=== PATIENT | female | born 2000 | race Caucasian/White ===

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

== ENCOUNTER 2020-05-18 00:01 | Emergency (ER) | payer OTHER ==
[~2020-05-18] VITALS: Ht 152.4 cm; Wt 77.0 kg
[~2020-05-18 00:01] MED LIST changes: +ZITHROMAX500 MG PO
[2020-05-18 02:20] VITALS: BP 122/68
== END 2020-05-18 02:20 | disposition home or self-care (01) ==
LOC: ED 00:01
DX: L50.0 Allergic urticaria (principal); L55.0 Sunburn of first degree; J45.909 Unspecified asthma, uncomplicated

== ENCOUNTER 2023-09-04 17:32 | Emergency (ER) | payer OTHER ==
[~2023-09-04] VITALS: Ht 152.4 cm; Wt 88.0 kg
[2023-09-04 18:30] LABS: BASO% 0.6 % (0-3); EOS% 1.4 % (0-8); HEMATOCRIT 42.2 % (37.0-47.0); HEMOGLOBIN 13.8 g/dl (12.0-16.0); IMMATURE GRANULOCYTES 0.2 % (0.0-5.0); LYMPH% 41.8 % (15-41); MEAN CORPUSCULAR HGB 28.5 pG CALC (26.0-32.0); MEAN CORPUSCULAR HGB CONC 32.7 g/dL CAL (32.0-36.0); MONO% 6.4 % (2-13); NEUT# 4.76 thou/uL (2.00-7.15); NEUT% 49.6 % (42-76); RED BLOOD COUNT 4.85 mill/uL (4.20-5.60); RED CELL DISTRI WIDTH 12.4 % (11.5-15.5)
[2023-09-04 18:30] LABS: URINE BILIRUBIN - DIPSTICK Negative (NEGATIVE); URINE BLOOD DIPSTICK Negative (NEGATIVE); URINE COLOR Yellow; URINE GLUCOSE - DIPSTICK Negative (NEGATIVE); URINE KETONE Negative (NEGATIVE); URINE LEUK ESTERASE Negative (NEGATIVE); URINE NITRITE - DIPSTICK Negative (Negative); URINE PROTEIN - DIPSTICK Negative (NEG-TRACE); URINE SPECIFIC GRAVITY 1.025; URINE UROBILINOGEN - DIPSTICK 0.2 E.U./dL (0.2)
[2023-09-04] MEDS ORDERED: SODIUM CHLORIDE 0.9% 1,000 ML IV ONE (18:55)
[2023-09-04 18:59] LABS: ALBUMIN 4.6 g/dL (3.2-5.0); BILIRUBIN, TOTAL 0.3 mg/dL (0.02-1.3); CREATININE 0.8 mg/dL (0.5-1.0); POTASSIUM 4.2 mmol/l (3.5-5.1); TOTAL PROTEIN 8.1 g/dL (6.3-8.2)
[2023-09-04 19:30] LABS: TSH, 3RD GENERATION 3.41 uIU/mL (0.47 - 4.68)
[2023-09-04] MEDS ORDERED: MECLIZINE 2525 MG PO (20:03)
[2023-09-04 20:49] VITALS: BP 126/75
== END 2023-09-04 20:49 | disposition home or self-care (01) ==
LOC: ED 17:32
PROVIDERS: Family Medicine
DX: R42 Dizziness and giddiness (principal); J45.909 Unspecified asthma, uncomplicated

== ENCOUNTER 2024-05-29 11:40 | Emergency (ER) | payer OTHER ==
[2024-05-29] VITALS (9 sets, daily range): BP systolic 98–137; BP diastolic 64–77
[~2024-05-29] VITALS: Ht 152.4 cm; Wt 79.4 kg
[~2024-05-29 11:40] MED LIST changes: +MECLIZINE 2525 MG PO
[2024-05-29 12:29] LABS: URINE BLOOD DIPSTICK Negative (NEGATIVE); URINE GLUCOSE - DIPSTICK Negative (NEGATIVE); URINE KETONE Negative (NEGATIVE); URINE LEUK ESTERASE Negative (NEGATIVE); URINE NITRITE - DIPSTICK Negative (Negative); URINE PH 5.5 (4.5-8.0); URINE PROTEIN - DIPSTICK 30 mg/dL (NEG-TRACE); URINE SPECIFIC GRAVITY >=1.030; URINE UROBILINOGEN - DIPSTICK 0.2 E.U./dL (0.2)
[2024-05-29 12:38] LABS: URINE COLOR Yellow; URINE EPITHELIAL CELLS MODERATE EPI/hpf (0-FEW)
[2024-05-29 12:40] LABS: URINE AMORPH SEDIMENT MANY hpf (NONE-FEW)
[2024-05-29 14:17] LABS: BASO% 0.5 % (0-3); EOS% 1.2 % (0-8); HEMATOCRIT 43.7 % (37.0-47.0); HEMOGLOBIN 14.4 g/dl (12.0-16.0); IMMATURE GRANULOCYTES 0.1 % (0.0-5.0); LYMPH% 39.4 % (15-41); MEAN CELL VOLUME 86.7 fL CALC (80.0-100.0); MEAN CORPUSCULAR HGB 28.6 pG CALC (26.0-32.0); MONO% 6.6 % (2-13); NEUT# 3.95 thou/uL (2.00-7.15); NEUT% 52.2 % (42-76); RED BLOOD COUNT 5.04 mill/uL (4.20-5.60)
[2024-05-29 14:27] LABS: ALBUMIN 4.7 g/dL (3.2-5.0); CREATININE 0.8 mg/dL (0.5-1.0); POTASSIUM 4.1 mmol/l (3.5-5.1); TOTAL PROTEIN 8.2 g/dL (6.3-8.2)
[2024-05-29 14:28] LABS: BILIRUBIN, TOTAL 0.6 mg/dL (0.02-1.3)
== END 2024-05-29 17:02 | disposition home or self-care (01) ==
LOC: ED 11:40
PROVIDERS: Family Medicine
DX: R10.84 Generalized abdominal pain (principal); J45.909 Unspecified asthma, uncomplicated; N83.201 Unspecified ovarian cyst, right side
CPT/HCPCS: Q9967